=== PATIENT | female | born 1945 | race Caucasian/White ===

== ENCOUNTER 2022-01-03 12:32 | Emergency (ER) | payer OTHER ==
[2022-01-03 13:06] VITALS: BP 137/63; PULSE 54; RESP 16; TEMP 98; BMI 17.6
[2022-01-03] MEDS ORDERED: ACETAMINOPHEN 500 MG TABLET (FP) PO ONE (15:31)
[2022-01-03] MEDS ORDERED: ACETAMINOPHEN 500 MG TABLET (FP) ONE (15:34)
== END 2022-01-03 15:40 | disposition home or self-care (01) ==
LOC: FER 12:32
DX: M25.551 Pain in right hip (principal)
CPT/HCPCS: 73502-TC-RT-FY; 99283-25